=== PATIENT | female | born 1945 | race Caucasian/White ===

== ENCOUNTER → 2023-12-14 09:40 | Outpatient (REF) | payer MEDICARE, SELFPAY | LOC: HWRAD 09:40 | PROVIDERS: ATTENDING PHYSICIAN Internal Medicine Critical Care Medicine; FAMILY PHYSICIAN Internal Medicine | DX: R05.9 Cough, unspecified (principal); R91.1 Solitary pulmonary nodule | CPT/HCPCS: 71250 ==

== ENCOUNTER 2023-12-30 15:20 | Emergency (ER) | payer MEDICARE, SELFPAY ==
[2023-12-30 15:21] VITALS: BP 123/79
--- NOTE | 2023-12-30 16:20 | ED.GENMED ---
History of Present Illness
<Chas Mae MD - Last Filed: 12/30/23 16:21>
General
Chief Complaint: Abdominal Pain
Source: patient
Exam Limitations: none
Time Seen by Provider: 12/30/23 15:43
History of Present Illness
History of Present Illness:
78-year-old female with some left lower quadrant pain x 1 week. Started status post colonoscopy. Had polyps removed at that time. No fever or chills. Also mild cough for 3 days. No pleuritic pain. Has been treated for UTI although no urine
symptoms. Currently on Bactrim.
Past History
<Chas Mae MD - Last Filed: 12/30/23 16:21>
Past History
ED Past Medical History: Other (Irritable bowel)
ED Past Surgical History: Other (Facelift/breast reduction)
Review of Systems
<Chas Mae MD - Last Filed: 12/30/23 16:21>
Review of Systems
All Other Systems: Not applicable
Constitutional: Denies fever
Respiratory: Reports cough; Denies trouble breathing
Cardiac: Reports no symptoms
Phy Exam
<Chas Mae MD - Last Filed: 12/30/23 16:21>
Physical Exam
Physical Exam:
GENERAL: Alert and oriented in no apparent distress
EYE: Orbits normal.
NECK: Supple, no significant adenopathy.
ENT: Pharynx without erythema
CARDIAC: Regular rate and rhythm without any obvious murmurs.
LUNGS: Clear breath sounds,normal
ABDOMEN: Soft, mild left lower quadrant tenderness. No rebound or guarding no mass or hernia
NEUROLOGICAL: Alert and oriented , grossly non-focal
SKIN: Warm and dry, no rash or lesion, no discoloration, skin intact.
MUSCULOSKELETAL: No edema,no deformity.Good color
PSYCH: Normal and appropriate interaction.
Course
<Chas Mae MD - Last Filed: 12/30/23 16:21>
Orders/Labs/Results
Orders:
Orders
12/30/23 15:43
IV Insert/Care/Rem.- Treatment PRN
0.9% Sodium Chloride 500 ml [Nss] 500 ml IV BOLUS
12/30/23 16:14
CT Abd/pel (oral only)-[facility] Only Urgent
Comment:
Reason For Exam: llq pain
Iohexol [Omnipaque] See Protocol PO NOW STA
12/30/23 16:35
Complete Blood Count/With Diff Urgent
Comprehensive Metabolic Panel Urgent
Lipase Urgent
12/30/23 18:22
Urinalysis Reflex To Culture Urgent
Date Specimen was Collected: 12/30/23
Time Specimen was Collected: 18:14
Urine Microscopic Reflex Cult Urgent
Abnormal Lab Results
12/30/23 12/30/23
16:35 18:22
RBC 3.42 L 10^6/uL
(4.20-5.40)
Hgb 10.5 L g/dL
(12.0-16.0)
Hct 30.3 L %
(37.0-47.0)
RDW 15.0 H %
(11.5-14.5)
Absolute Monos (auto) 0.7 H 10^3/uL
(0.1-0.6)
Monocytes % 10.5 H %
(1.7-9.3)
Glucose 111 H mg/dl
(70-99)
Ur Occult Blood Reflex 3+ A
(Negative)
Urine RBC 11-15 A /HPF
(0-2)
Urine Bacteria (Reflex) Few A
(Negative)
12/30/23 16:35
12/30/23 16:35
Vital Signs
Initial and Last Documented VS:
Initial Vital Signs
Temp Pulse Resp BP Pulse Ox
98.3 F 85 16 123/79 98
12/30/23 15:21 12/30/23 15:21 12/30/23 15:21 12/30/23 15:21 12/30/23 15:21
Last Documented Vital Signs
Temp Pulse Resp BP Pulse Ox
98.3 F 85 16 156/77 98
12/30/23 15:21 12/30/23 15:21 12/30/23 15:21 12/30/23 16:42 12/30/23 15:21
<Xu Deutsch, DO - Last Filed: 12/30/23 20:56>
Orders/Labs/Results
Orders:
Orders
12/30/23 15:43
IV Insert/Care/Rem.- Treatment PRN
0.9% Sodium Chloride 500 ml [Nss] 500 ml IV BOLUS
12/30/23 16:14
CT Abd/pel (oral only)-[facility] Only Urgent
Comment:
Reason For Exam: llq pain
Iohexol [Omnipaque] See Protocol PO NOW STA
12/30/23 16:35
Complete Blood Count/With Diff Urgent
Comprehensive Metabolic Panel Urgent
Lipase Urgent
12/30/23 18:22
Urinalysis Reflex To Culture Urgent
Date Specimen was Collected: 12/30/23
Time Specimen was Collected: 18:14
Urine Microscopic Reflex Cult Urgent
Abnormal Lab Results
12/30/23 12/30/23
16:35 18:22
RBC 3.42 L 10^6/uL
(4.20-5.40)
Hgb 10.5 L g/dL
(12.0-16.0)
Hct 30.3 L %
(37.0-47.0)
RDW 15.0 H %
(11.5-14.5)
Absolute Monos (auto) 0.7 H 10^3/uL
(0.1-0.6)
Monocytes % 10.5 H %
(1.7-9.3)
Glucose 111 H mg/dl
(70-99)
Ur Occult Blood Reflex 3+ A
(Negative)
Urine RBC 11-15 A /HPF
(0-2)
Urine Bacteria (Reflex) Few A
(Negative)
12/30/23 16:35
12/30/23 16:35
Vital Signs
Initial and Last Documented VS:
Initial Vital Signs
Temp Pulse Resp BP Pulse Ox
98.3 F 85 16 123/79 98
12/30/23 15:21 12/30/23 15:21 12/30/23 15:21 12/30/23 15:21 12/30/23 15:21
Last Documented Vital Signs
Temp Pulse Resp BP Pulse Ox
98.3 F 85 16 156/77 98
12/30/23 15:21 12/30/23 15:21 12/30/23 15:21 12/30/23 16:42 12/30/23 15:21
<Chas Mae MD - Last Filed: 12/30/23 16:21>
MDM/Problems Addressed
Differential Diagnosis Includes:
Differential for left lower quadrant pain. Colitis, colitis, bowel perforation, hematoma status post colonoscopy., Urinary or urologic issue. Workup in progress
<Xu Deutsch DO - Last Filed: 12/30/23 20:56>
MDM/Problems Addressed
MDM/Problems Addressed:
78-year-old female with splenic laceration, hematoma seen on CT abdomen pelvis. Discussed plan of care with general surgery, who recommended admit for monitoring and further evaluation. Discussed with patient, who does not want to stay in the
hospital, understands the risks to include and leaves AGAINST MEDICAL ADVICE.
<Chas Mae MD - Last Filed: 12/30/23 16:21>
*Pulse Oximetry
Patient hypoxic: no
Data Reviewed
Review of Other/Old Records Reveals: Radiology Studies (X-ray from outside source today. Unremarkable)
<Xu Deutsch DO - Last Filed: 12/30/23 20:56>
*Radiology
Radiology exam reviewed: radiology read reviewed (CT abdomen pelvis reveals splenic laceration and hematoma)
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
Rate: normal
Interpretation: normal
Heart Rate: 85
Rhythm: sinus
*Critical Care Note
Total Time (30-74mins, 75-104mins- exclusive of procedures): 30
comment:
Critical care statement: A total of 30 minutes of critical care time was provided for this patient. This includes management of unstable vital signs, evaluation of the patient at bedside, reviewing the patient's pertinent medical records, discussion
with consultants, review of old EKGs and review of pertinent medical records. This time with separate from time utilized to perform the aforementioned documented procedures
ED Attending Note
<Chas Mae MD - Last Filed: 12/30/23 16:21>
-
Portions of this chart may have been created with voice recognition software.� Occasional wrong word or��sound alike� substitutions may have occurred due to the inherent limitations of voice recognition software.
Discharge Plan
Departure
Patient Disposition: Against Medical Advice
Date of Disposition: 12/30/23
Time of Disposition: 20:06
Patient with high blood pressure during this ER visit?: Yes
Condition: Good
Discharge Problem:
Anemia, Spleen laceration
Instructions: Spleen Injury, Abdominal Pain, BLOOD PRESSURE
Prescriptions:
No Action
acetaminophen-codeine 1 TABLET tablet
1 tab PO Q4HPRN PRN (Reason: pain) Qty: 15 0RF
Referrals:
Nate Benitez MD [Family Provider] - Follow up in 2-3 days
Saurav Alvarez MD [Active] - Call in 1-3 days for appt
Activity Restrictions/Additional Instructions:
Follow-up your anemia with your primary physician
Interventions
Interventions:
*Risk Screen - Suicide Last Done: 12/30/23 15:21
*General Assessment Last Done: 12/30/23 17:30
*Neglect/Abuse Screening Last Done: 12/30/23 15:21
*ED COVID-19 Vaccine History Last Done: 12/30/23 16:49
TK-Hllwss-Mctutjykad Assessment Last Done: 12/30/23 16:47
Discharge Date and Time
Print Language: COMORAN
[2023-12-30] MEDS: OMNIPAQUE 50 ML PO (16:30)
[2023-12-30] MEDS: NSS 500 IV (16:40)
[2023-12-30 16:42] VITALS: BP 156/77
[2023-12-30 16:49] LABS: % Basophils 0.5 % (0-2); % Eosinophils 2.9 % (0-6); % Immature Granulocytes 0.2 % (0-0.5); % Lymphocytes 25.7 % (20.5-51.1); % Monocytes 10.5 % (1.7-9.3); % Neutrophils 60.2 % (42.2-75.2); Absolute Eosinophils 0.2 10^3/uL (0-0.7); Absolute Lymphocytes 1.6 10^3/uL (1.2-3.4); Absolute Monocytes 0.7 10^3/uL (0.1-0.6); Absolute Neutrophils 3.8 10^3/uL (1.4-6.5); Hematocrit 30.3 % (37.0-47.0); Hemoglobin 10.5 g/dL (12.0-16.0); Mean Corp Hgb Conc. 34.7 g/dL (33.0-37.0); Mean Corpuscular Hgb 30.7 pg (27.0-31.0); Mean Corpuscular Volume 88.6 fL (81.0-99.0); Nucleated Red Blood Cells % 0 %; Platelet Count 321 10^3/uL (130-400); Red Blood Cell Count 3.42 10^6/uL (4.20-5.40); White Blood Cell Count 6.3 10^3/uL (4.8-10.8)
[2023-12-30 17:06] LABS: ALT (SGPT) 17 U/L (0-35); AST (SGOT) 28 U/L (14-36); Albumin 4.2 g/dl (3.5-5.0); Alkaline Phosphatase 69 U/L (38-126); Blood Urea Nitrogen 13 mg/dl (7-17); Calcium 9.8 mg/dl (8.4-10.2); Carbon Dioxide 28 mmol/L (22-30); Chloride 102 mmol/L (98-107); Glucose 111 mg/dl (70-99); Lipase 35 U/L (23-300); Sodium 139 mmol/L (135-145); Total Bilirubin 0.3 mg/dl (0.2-1.3); Total Protein 6.5 g/dl (6.3-8.2); eGFR > 60.00
[2023-12-30 18:32] LABS: Urine Albumin Negative (Neg - Trace); Urine Bilirubin Negative (Negative); Urine Character Clear (Clear); Urine Color Yellow; Urine Glucose Negative (Negative); Urine Ketone Negative (Negative); Urine Leukocyte Negative (Negative); Urine Nitrite Negative (Negative); Urine Occult Blood 3+ (Negative); Urine Urobilinogen Negative (Neg - 1+)
[2023-12-30 18:40] LABS: Urine Squamous Cell 0-2 /LPF (Few)
[2023-12-30 18:41] LABS: Urine Mucus Few
[2023-12-30 18:42] LABS: Urine Bacteria Few (Negative)
[2023-12-30 19:00] VITALS: BP 110/83
== END 2023-12-30 21:11 | disposition left against medical advice (07) ==
LOC: EMR 15:20
PROVIDERS: EMERGENCY PHYSICIAN Emergency Medicine; FAMILY PHYSICIAN Internal Medicine
DX: R10.32 Left lower quadrant pain (principal); S36.039A Unspecified laceration of spleen, initial encounter; X58.XXXA Exposure to other specified factors, initial encounter; K58.9 Irritable bowel syndrome, unspecified; D64.9 Anemia, unspecified
CPT/HCPCS: 99291; 74176; 80053; 81003; 81015; 83690; 85025

== ENCOUNTER → 2025-01-01 10:06 | Outpatient (REF) | payer MEDICARE, SELFPAY | LOC: RAD 10:06 | PROVIDERS: ATTENDING PHYSICIAN Internal Medicine; FAMILY PHYSICIAN Internal Medicine | DX: K59.01 Slow transit constipation (principal); R15.9 Full incontinence of feces | CPT/HCPCS: 74270 ==

== ENCOUNTER → 2025-01-14 09:41 | Outpatient (REF) | payer MEDICARE, SELFPAY | LOC: HWRAD 09:41 | PROVIDERS: ATTENDING PHYSICIAN Internal Medicine Rheumatology; FAMILY PHYSICIAN Internal Medicine | DX: M81.0 Age-related osteoporosis without current pathological fracture (principal); Z13.820 Encounter for screening for osteoporosis | CPT/HCPCS: 77080; 77081 ==